=== PATIENT | male | born 1995 | race Caucasian/White ===

== ENCOUNTER 2017-03-04 10:59 | Emergency (ER) | payer SELFPAY ==
[~2017-03-04] VITALS: Ht 154.9 cm; Wt 64.0 kg
[2017-03-04 11:07] VITALS: BP 162/90; PULSE 80; RESP 16; TEMP 97.6; O2SAT 100
--- NOTE | 2017-03-04 12:28 | PD ---
HPI . Itching Chief Complaint: Abdominal Pain Time Seen by Provider: 12:16 Travel History International Travel<30 days: No Contact w/Intl Traveler<30days: No History of Present Illness HPI Patient presents with chief complaint of itching. Onset was a couple of weeks ago. He is complaining with itching in his penis and suprapubic area. He states that he was seen here for it and medication to take but that the medication is not helping. He reports associated dysuria and a white penile discharge. He states that he was sexually active about a month ago they used a condom. He knows of no exposure to STD. [facility] Social History Tobacco Use: No Allergies-Medications (Allergen,Severity, Reaction): Coded Allergies: No Known Allergies (Unverified , 03/04/17) Reported Meds & Prescriptions Reported Meds & Active Scripts Active No Active Prescriptions or Reported Medications Review of Systems ROS Limitations: Language Barrier Except as stated in HPI: all other systems reviewed are Neg General / Constitutional: No: Fever, Chills Genitourinary: Positive: Discharge, No: Urgency, Frequency, Dysuria Skin: Positive Itching, No Rash Physical Exam Narrative GENERAL: Awake and alert and in no acute distress. SKIN: Warm and dry. HEAD: Normocephalic/atraumatic. EYES: Pupils are equal. Extraocular movements are intact. NECK: Normal range of motion. CARDIOVASCULAR: Regular rate and rhythm. RESPIRATORY: Nonlabored respirations. : Normal circumcised male. No rash. No obvious penile discharge. MUSCULOSKELETAL: Atraumatic. NEUROLOGICAL: Nonfocal. PSYCHIATRIC: Appropriate mood and affect. Data Data Last Documented VS Vital Signs Date Time Temp Pulse Resp B/P (MAP) Pulse Ox O2 Delivery O2 Flow Rate FiO2 03/04/17 11:07 97.6 80 16 162/90 (114) 100 Orders Orders Urinalysis - C+S If Indicated (03/04/17 12:16) Gc And Chlamydia Pcr (03/04/17 12:16) Azithromycin (Zithromax) (03/04/17 12:30) Ceftriaxone Inj (Rocephin Inj) (03/04/17 12:30) Lidocaine 1% Inj (Xylocaine 1% Inj) (03/04/17 13:00) Labs Laboratory Tests Test 03/04/17 12:25 Urine Collection Type CLEAN CATCH Urine Color YELLOW Urine Turbidity CLEAR Urine pH 6.0 Urine Specific [place] 1.022 Urine Protein NEG mg/dL Urine Glucose (UA) NEG mg/dL Urine Ketones NEG mg/dL Urine Occult Blood NEG Urine Nitrite NEG Urine Bilirubin NEG Urine Leukocyte Esterase NEG Urine Squamous Epithelial Cells 0-5 /hpf Urine Amorphous Sediment FEW Microscopic Urinalysis Comment CULT NOT INDICATED Urine Collection Time 1225 MDM Medical Decision Making Medical Screen Exam Complete: Yes Emergency Medical Condition: Yes Medical Record Reviewed: Yes (this patient has not been seen here previously using this same spelling of his name) Differential Diagnosis Final differential diagnosis of urinary symptoms includes but is not limited to UTI, kidney stone, pyelonephritis, bacterial vaginosis, yeast infection, urinary retention Narrative Course This patient presents complaining with penile itching and white discharge. He most likely has chlamydia. I have empirically ordered Rocephin and Zithromax. UA and GC chlamydial DNA probe will be checked. UA is neg. I will treat for STDs and d/c him. Diagnosis Primary Impression: Urethritis Referrals: [facility] Patient Instructions: General Instructions, Nonspecific Urethritis in Men (DC) Scripts No Active Prescriptions or Reported Meds Disposition: DISCHARGE HOME Condition: Stable Lorin Conteh MD Mar 04, 2017 12:28
[2017-03-04] MEDS ORDERED: cefTRIAXone 250 MG VIAL IM ONE (12:30)
[2017-03-04] MEDS ORDERED: AZITHROMYCIN 250 MG TAB PO ONE (12:30)
[2017-03-04] MEDS ORDERED: LIDOCAINE HCL 1% 50 ML VIAL XX ONE (12:30)
[2017-03-04 12:43] LABS: BILIRUBIN, URINE NEG (NEG); BLOOD, URINE NEG (NEG); GLUCOSE,URINE NEG (NEG); KETONE, URINE NEG (NEG); NITRITE,URINE NEG (NEG); URINE LEUKOCYTE ESTERASE NEG (NEG)
[2017-03-04 12:52] LABS: URINE COLOR YELLOW (YELLW/STRAW)
[2017-03-04 12:53] LABS: AMORPHOUS SEDIMENT, URINE FEW; SQUAMOUS EPITHELIAL CELL URINE 0-5 /hpf (0-5)
[2017-03-04] MEDS ORDERED: LIDOCAINE HCL 1% 20 ML VIAL OTHER ONE ×2 (13:00)
[2017-03-04 13:34] VITALS: BP 114/74
== END 2017-03-04 13:35 | disposition home or self-care (01) ==
LOC: PHED 10:59
DX: N34.2 Other urethritis (principal)
CPT/HCPCS: 81001; 87491; 87591; 96372; 99283; J0696

== ENCOUNTER 2017-04-23 15:08 | Emergency (ER) | payer SELFPAY ==
[~2017-04-23] VITALS: Ht 154.9 cm; Wt 64.8 kg
[2017-04-23 15:11] VITALS: BP 124/65; PULSE 89; RESP 16; TEMP 98.6; O2SAT 99
[2017-04-23 15:51] LABS: BILIRUBIN, URINE NEG (NEG); BLOOD, URINE NEG (NEG); GLUCOSE,URINE NEG (NEG); KETONE, URINE NEG (NEG); NITRITE,URINE NEG (NEG); URINE LEUKOCYTE ESTERASE NEG (NEG)
[2017-04-23 16:01] LABS: URINE COLOR YELLOW (YELLW/STRAW)
[2017-04-23 16:02] LABS: SQUAMOUS EPITHELIAL CELL URINE 0-5 /hpf (0-5)
--- NOTE | 2017-04-23 16:22 | PD ---
HPI Chief Complaint: Penile pain Time Seen by Provider: 15:54 Travel History International Travel<30 days: No Contact w/Intl Traveler<30days: No Traveled to known affect area: No History of Present Illness [facility] [employer] Techn[employer]enza [id number] was used for history and exam. 21yo M with no PMH presents to the ED with c/o penile pain for 1 month. Said it is intermittent and he has penile discharge. Said he also has bilateral testicular pain for a few days. It seems that pain is radiating from his penis. Also said he felt warm but no documented fever and pain all over his body. Denies any chest pain , sob, cough, n/v, abdominal pain, focal weakness or numbness. Pt was here for similar complaints in March but he said no it's not the same. He is sexually active and said he does use protection. PFSH Past Medical History Medical History: Denies Significant Hx Diminished Hearing: No Genitourinary: Yes (uti) Influenza Vaccination: No ?: Not Past Surgical History Surgical History: No Previous Surgery Social History Alcohol Use: No Tobacco Use: No Allergies-Medications (Allergen,Severity, Reaction): Coded Allergies: No Known Allergies (Unverified , 04/23/17) Reported Meds & Prescriptions Reported Meds & Active Scripts Active No Active Prescriptions or Reported Medications Review of Systems Except as stated in HPI: all other systems reviewed are Neg Physical Exam Narrative GENERAL: 21yo M not in distress. SKIN: Focused skin assessment warm/dry. HEAD: Atraumatic. Normocephalic. EYES: Pupils equal and round. EOMI. ENT: No nasal bleeding or discharge. Mucous membranes pink and moist. NECK: No nuchal rigidity. CARDIOVASCULAR: Regular rate and rhythm. No murmur appreciated. RESPIRATORY: No accessory muscle use. Clear to auscultation. Breath sounds equal bilaterally. GASTROINTESTINAL: Abdomen soft, non-tender, nondistended. No RLQ. No rebound tenderness or guarding. : No rash on penile shaft. No penile discharge. +TTP bilateral testicles. No elevation or testicle. No hernia palpated. MUSCULOSKELETAL: No obvious deformities. No clubbing. No cyanosis. No edema. NEUROLOGICAL: Awake and alert. No obvious cranial nerve deficits. Motor grossly within normal limits in all extremities. Sensation intact. Normal speech. PSYCHIATRIC: Appropriate mood and affect; insight and judgment normal. Data Data Last Documented VS Vital Signs Date Time Temp Pulse Resp B/P (MAP) Pulse Ox O2 Delivery O2 Flow Rate FiO2 04/23/17 15:11 98.6 89 16 124/65 (84) 99 Orders Orders Urinalysis - C+S If Indicated (04/23/17 15:37) Us Testicles W Doppler (04/23/17 ) Influenzae A/B Antigen (04/23/17 16:20) Acetaminophen (Tylenol) (04/23/17 16:30) Gc And Chlamydia Pcr (04/23/17 16:20) Ketorolac Inj (Toradol Inj) (04/23/17 18:00) Azithromycin Powd Pack (Zithromax Powd P (04/23/17 18:00) Ceftriaxone Inj (Rocephin Inj) (04/23/17 18:00) Lidocaine 1% Inj (50 Ml) (Xylocaine 1% I (04/23/17 18:00) Labs Laboratory Tests Test 04/23/17 15:30 Urine Color YELLOW Urine Turbidity CLEAR Urine pH 7.0 Urine Specific [place] 1.020 Urine Protein NEG mg/dL Urine Glucose (UA) NEG mg/dL Urine Ketones NEG mg/dL Urine Occult Blood NEG Urine Nitrite NEG Urine Bilirubin NEG Urine Leukocyte Esterase NEG Urine Squamous Epithelial Cells 0-5 /hpf Microscopic Urinalysis Comment CULT NOT INDICATED MDM Medical Decision Making Medical Screen Exam Complete: Yes Emergency Medical Condition: Yes Differential Diagnosis STI vs. UTI vs. Testicular torsion (less likely) vs. anxiety Narrative Course 21yo M here with c/o penile pain, discharge and pain radiating to bilateral testicles. Physical exam is unremarkable. No abdominal tenderness on exam. Vital signs normal. Pt given acetaminophen and toradol for pain. Influenza negative. UA showed no leukocyte. Culture not indicated. Pt said he wants to be empirically treated for gonorrhea and chlamydia so given ceftriaxone and azithromycin. Used Diana [id number] as segment producer to explain results and answered all questions. Pt given a copy of ultrasound results and instructed to follow up with PMD or urology if symptoms persist. Return precautions given. Diagnosis Primary Impression: Penile pain Referrals: Jaden Garcia DO as needed Patient Instructions: General Instructions Departure Forms: Tests/Procedures Additional Instructions: Please follow up with your primary care physician or call urology clinic if symptoms persist. Return to the ED if symptoms worsen. Med/Other Pt SpecificInfo: Prescription(s) given Scripts Acetaminophen (Tylenol) 325 Mg Tab 650 MG PO Q6H Y for PAIN SCALE 1 TO 4, #20 TAB 0 Refills Prov: Aylin Durbin DO 04/23/17 Disposition: 01 DISCHARGE HOME Condition: Stable Aylin Durbin DO Apr 23, 2017 16:22
[2017-04-23] MEDS ORDERED: ACETAMINOPHEN 325 MG TAB PO ONE (16:30)
--- NOTE | 2017-04-23 16:58 | RADRPT ---
EXAM DATE/TIME: 04/23/2017 16:42 [place] COMPARISON: No previous studies available for comparison. INDICATIONS : Testicle pain. MEDICAL HISTORY : Testicle pain. SURGICAL HISTORY : None. ENCOUNTER: Initial ACUITY: 1 month PAIN SCORE: 2/10 LOCATION: Bilateral scrotum. MEASUREMENTS: RIGHT TESTICLE: 4.2 x 3.4 x 2.4cm LEFT TESTICLE: 3.7 x 2.9 x 1.9cm FINDINGS: RIGHT TESTICLE: Homogeneous echotexture without intra or extratesticular mass. Blood flow is symmetric and within no rmal limits. No hydrocele or varicocele. Epididymis is within normal limits. LEFT TESTICLE: Homogeneous echotexture without intra or extratesticular mass. Blood flow is symmetric and within no rmal limits. No hydrocele or varicocele. Epididymis is within normal limits. SCROTUM: Within normal limits. CONCLUSION: Normal examination. Andrew Rizo MD on April 23, 2017 at 16:57 Board Certified Radiologist. This report was verified electronically.
[2017-04-23] MEDS ORDERED: KETOROLAC TROMETHAMINE 60 MG/2 ML (IM) VIAL IM ONE (18:00)
[2017-04-23] MEDS ORDERED: LIDOCAINE HCL 1% 50 ML VIAL XX ONE (18:00)
[2017-04-23] MEDS ORDERED: cefTRIAXone 250 MG VIAL IM ONE (18:00)
[2017-04-23] MEDS ORDERED: AZITHROMYCIN PWD FOR SUSP 1 GM PACKET PO ONE (18:00)
[2017-04-23] MEDS ORDERED: TYLE325T PO (18:19)
[2017-04-23] MEDS ORDERED: LIDOCAINE HCL 1% PF 30 ML VIAL OTHER ONE (18:30)
[2017-04-23 19:41] VITALS: BP 122/75; TEMP 98.2
== END 2017-04-23 19:54 | disposition home or self-care (01) ==
LOC: PHED 15:08
DX: N48.89 Other specified disorders of penis (principal)
CPT/HCPCS: 76870; 81001; 87491; 87591; 87804; 93975; 96372; 99284; J0696; J1885